=== PATIENT | female | born 1945 | race Caucasian/White ===

== ENCOUNTER 2017-05-31 08:00 | Outpatient (CLI) ==
--- NOTE | 2017-05-31 12:14 | MRI ---
EXAM: MRI right shoulder without contrast COMPARISON: Right shoulder radiographs 05/19/2017. HISTORY: Right shoulder pain. TECHNIQUE: Multiplanar noncontrast MR images of the right shoulder were acquired using a 1.2 Amy magnet. FINDINGS: There is marked supraspinatus as well as moderately severe infraspinatus and subscapulari s tendinosis. Tiny partial-thickness/rim rent tear of the insertional fibers of the supraspinatus m easuring 3 mm medial to lateral dimension and extending through the supraspinatus/infraspinatus junc tion. Thinning and bursal surface irregularity of the supraspinatus ovary region measuring 1.7 cm i n medial to lateral dimension from the acromion through the insertional fibers related bursal surfac e fraying and/or shallow partial-thickness bursal surface tear. No full-thickness rotator cuff tear or tendon retraction. Myotendinous unit strain of the supraspinatus. Cystic degenerative change a nd spurring of the greater tuberosity at the rotator cuff attachment. Moderate amount of fluid in t he subacromial/subdeltoid bursa with mild synovial thickening. Moderately severe thinning of the cartilage at the glenohumeral joint most pronounced along the cent ral/inferior glenoid with subchondral edema and cystic change. No evidence of an acute fracture or dislocation. There is a moderate sized glenohumeral joint effusion with synovial thickening/prolife ration most extensive at the level of the subscapularis recess. Correlate clinically for signs of a n inflammatory arthritis such as rheumatoid arthritis versus infection. Question small loose bodies or rice bodies within the joint at that level. No evidence of an acute fracture or dislocation. L imited assessment of the glenoid labrum on this non arthrographic study. Intrasubstance degeneratio n of the labrum with overall diminished size and mild peripheral irregularity posteriorly related to degenerative fraying/degenerative type tear. Hyperintense signal involving the capsulolabral junct ion anteriorly and inferiorly which may represent sequela of adhesive capsulitis or capsulolabral in jury. The long head of the biceps is located within the bicipital groove with tendinosis/partial tear and tenosynovitis. Marked hypertrophic degenerative changes of the acromioclavicular joint. Small acromioclavicular clifford int effusion with edema adjacent the joint capsule related to a low grade sprain synovitis without a bnormal widening of the joint space. Mild diffuse muscle atrophy. No soft tissue mass. IMPRESSION: 1. Moderate sized glenohumeral joint effusion with synovitis/synovial proliferation most pronounced at the subscapularis recess. This is nonspecific but clinical correlation for signs of inflammator y arthritis such as rheumatoid arthritis versus infection is recommended. Consider joint aspiration . Small filling defects within the subscapularis recess related to synovitis versus small loose bod ies or rice bodies. 2. Moderate subacromial/subdeltoid bursitis. 3. Moderate to marked rotator cuff tendinosis. Tiny partial-thickness/rim rent tear of the suprasp inatus and addition to a broad region of bursal surface fraying/partial thickness bursal surface tea r. No full-thickness rotator cuff tear or tendon retraction. 4. Marked hypertrophic degenerative changes of the acromioclavicular joint with a joint effusion. Edema adjacent joint capsule related synovitis or a low grade sprain without abnormal widening of th e joint space. 5. Tendinosis/partial tear and tenosynovitis of the long head bicep. 6. Suspected degenerative fraying/degenerative type tear of the glenoid labrum. Hyperintense signa l involving the anteroinferior capsulolabral junction related to capsulolabral sprain/injury or caps ulitis.
== END 2017-05-31 08:01 | disposition home or self-care (01) ==
LOC: RAD 08:00
PROVIDERS: ATTEND Emergency Medicine
DX: M67.911 Unspecified disorder of synovium and tendon, right shoulder (principal)

== ENCOUNTER 2017-06-20 08:55 | Outpatient (CLI) ==
--- NOTE | 2017-06-21 10:16 | MAMMO ---
EXAM: Digital screening mammogram with 3-D tomosynthesis and CAD HISTORY: Screening mammogram COMPARISON: Mammogram 05/13/2016 FINDINGS: Bilateral CC and MLO views of the breasts were performed digitally and demonstrate scatter ed fibroglandular breast density. The right breast oil cysts are present. There is unchanged left la teral well-demarcated nodules. There is no abnormal nodule or calcification. Benign vascular calcif ications are present. There is no significant interval change. IMPRESSION: No abnormal nodule or calcification RECOMMENDATION: Annual screening mammogram BIRADS category II: Benign findings
== END 2017-06-20 08:56 | disposition home or self-care (01) ==
LOC: RAD 08:55
PROVIDERS: ATTEND Emergency Medicine
DX: Z12.31 Encounter for screening mammogram for malignant neoplasm of breast (principal)
CPT/HCPCS: 77067

== ENCOUNTER 2017-12-07 18:06 | Outpatient (CLI) | END 2017-12-07 18:07 | disposition short-term general hospital (02) | LOC: AMBL 18:06 | PROVIDERS: ATTEND Emergency Medicine | DX: R06.9 Unspecified abnormalities of breathing (principal); R68.89 Other general symptoms and signs; Z98.890 Other specified postprocedural states ==

== ENCOUNTER 2017-12-19 15:34 | Outpatient (CLI) | END 2017-12-19 15:35 | disposition home or self-care (01) | LOC: RHC-LAB 15:34 | PROVIDERS: ATTEND Emergency Medicine | DX: D50.8 Other iron deficiency anemias (principal) | CPT/HCPCS: 36415; 85025 ==

== ENCOUNTER 2018-01-29 09:15 | Outpatient (CLI) | END 2018-01-29 09:16 | disposition home or self-care (01) | LOC: LAB 09:15 | PROVIDERS: ATTEND Emergency Medicine | DX: D50.8 Other iron deficiency anemias (principal) | CPT/HCPCS: 36415; 82607; 82728; 82746; 83540; 83550; 84466; 85025; 85045 ==

== ENCOUNTER 2018-03-21 13:53 | Outpatient (POV) | END 2018-03-21 17:00 | LOC: OUTPT 13:53 | PROVIDERS: ATTEND Otolaryngology | DX: H90.5 Unspecified sensorineural hearing loss (principal) ==

== ENCOUNTER 2018-06-19 10:29 | Outpatient (CLI) ==
--- NOTE | 2018-06-20 08:49 | MAMMO ---
EXAM: Bilateral digital screening mammogram (2-D and 3-D) History: Screening Comparison: Bilateral mammogram 06/20/2017 Findings: MLO and CC views of bilateral breasts demonstrate scattered fibroglandular breast parenchy ma. CAD was reviewed by the radiologist. Tomosynthesis was performed. Stable benign bilateral vasc ular and scattered calcifications. There are no dominant masses, no suspicious microcalcifications a nd no architectural distortions Impression: Benign stable mammogram. Recommend followup routine screening mammography in 1 year. BIRADS 2
== END 2018-06-19 10:30 | disposition home or self-care (01) ==
LOC: RAD 10:29
PROVIDERS: ATTEND Nurse Practitioner Family
DX: Z12.31 Encounter for screening mammogram for malignant neoplasm of breast (principal)
CPT/HCPCS: 77067

== ENCOUNTER 2018-07-13 15:58 | Outpatient (CLI) | END 2018-07-13 15:59 | disposition home or self-care (01) | LOC: FCC-LAB 15:58 | PROVIDERS: ATTEND Nurse Practitioner Family | DX: N39.0 Urinary tract infection, site not specified (principal); Z86.2 Personal history of diseases of the blood and blood-forming organs and certain disorders involving the immune mechanism; Z82.49 Family history of ischemic heart disease and other diseases of the circulatory system | CPT/HCPCS: 36415; 80053; 85025; 87086; 87186 ==

== ENCOUNTER 2018-12-13 14:47 | Outpatient (CLI) | END 2018-12-13 14:48 | disposition home or self-care (01) | LOC: RHC-LAB 14:47 | PROVIDERS: ATTEND Nurse Practitioner Family | DX: N39.0 Urinary tract infection, site not specified (principal) | CPT/HCPCS: 87086; 87186 ==

== ENCOUNTER 2019-02-13 08:25 | Outpatient (CLI) | END 2019-02-13 08:26 | disposition home or self-care (01) | LOC: RHC-LAB 08:25 | PROVIDERS: ATTEND General Practice | DX: R21 Rash and other nonspecific skin eruption (principal); I10 Essential (primary) hypertension | CPT/HCPCS: 36415; 80053; 80061; 84443; 85025 ==

== ENCOUNTER 2019-02-14 10:18 | Outpatient (CLI) ==
--- NOTE | 2019-02-14 11:22 | US ---
EXAM: Bilateral carotid artery Doppler History: Right carotid bruit. Technique: Multiple sonographic images through the bilateral internal carotid arteries were obtained . Color duplex Doppler was used to interrogate vascular flow. Findings: The right ICA peak systolic velocity is within normal limits measuring 85 cm/sec. The right ICA/cca PSV ratio is normal at 1.5. The right vertebral artery is patent and demonstrates antegrade flow. G ray scale images demonstrate mild plaque buildup within the right internal carotid artery. The left ICA peak systolic velocity is moderately elevated measuring 127 cm/sec. The left ICA/cca PS V ratio is moderately increased at 2.0. The left vertebral artery is patent and demonstrates antegra de flow. Solomon scale images demonstrate mild to moderate plaque buildup within the left internal leonardo tid artery. Impression: 1. Moderate 50-69% hemodynamic stenosis of the left internal carotid artery. 2. No significant hemodynamic stenosis of the right internal carotid artery.
== END 2019-02-14 10:19 | disposition home or self-care (01) ==
LOC: RAD 10:18
PROVIDERS: ATTEND General Practice
DX: R09.89 Other specified symptoms and signs involving the circulatory and respiratory systems (principal)

== ENCOUNTER 2019-05-21 11:50 | Outpatient (CLI) ==
[2019-05-22 13:06] VITALS: BMI 32.4
== END 2019-05-21 11:51 | disposition home or self-care (01) ==
LOC: RHC-LAB 11:50
PROVIDERS: ATTEND Nurse Practitioner Family
DX: R73.9 Hyperglycemia, unspecified (principal); M79.672 Pain in left foot; R31.9 Hematuria, unspecified
CPT/HCPCS: 81001; 87086; 87186

== ENCOUNTER 2019-05-22 09:18 | Observation (INO) ==
[2019-05-22] MEDS ORDERED: DECADRON 4 MG/ML SDV IM STA (09:40)
--- NOTE | 2019-05-22 10:53 | DI ---
Exam: Two views of the neck soft tissues. Comparison: None available. Reason for exam: Angioedema. FINDINGS: There is multilevel degenerative disease seen throughout the cervical spine. No obvious v ertebral body height loss is seen. Imaging is obtained from the C2-C6 vertebral body. The preverteb ral soft tissues appear mildly prominent measuring 2 cm at the C6 vertebral body. Impression: Mild prominence of the prevertebral soft tissues, specifically at the level of the C6 vertebral body which measures approximately 2 cm. If clinical concern exists for soft tissue pathology, direct visu alization could be performed. Recommend clinical correlation.
[2019-05-22] MEDS ORDERED: ROCEPHIN 1 GM/50 ML D5W 1 GM in PREMIX 50 ML D5W 1 BAG IV STA (11:06)
--- NOTE | 2019-05-22 11:10 | ED.PDOC ---
General ED Provider: Dr. TYRESE LOPEZ Chief Complaint: Allergic Reaction Stated Complaint: FEELS THROAT IS CLOSING AFTER MEDS FOR UTI. ABLE TO DRINK WATER FULL CUP AT E/D Time Seen by Physician: 09:30 (SEEN WITH HER NURSE ) Mode of Arrival: Walk-In Information Source: Patient Exam Limitations: No limitations [facility] Nursing and Triage Documentation Reviewed and Agree: Yes Does patient meet sepsis criteria?: No System Inflammatory Response Syndrome: Not Applicable Sepsis Protocol: For patient's 13 years and over: Temp is 96.8 and below OR 101 and greater Pulse >90 BPM Resp >20/minute Acutely Altered Mental Status Are patient's symptoms suggestive of a new infection, such as: -Pneumonia -Skin, Soft Tissue -Endocarditis -UTI -Bone, Joint Infection -Implantable Device -Acute Abdominal Infection -Wound Infection -Meningitis -Blood Stream Catheter Infection -Unknown EENT Complaint Exam - Throat Complaint/Exam Onset/Duration: TODAY Symptoms Are: Still present Initial Severity: Mild Current Severity: Mild Aggravating: Reports: None Alleviating: Reports: None Associated Signs and Symptoms: Denies: Fever, Dysphagia, Drooling, Foreign body sensation, Chills, Cough, Wheezing, Hoarseness, Sinus discomfort, Nasal congestion, Difficulty breathing, Lethargy, Irritability, Decreased activity, Vomiting, Diarrhea, Decreased hearing, Ear drainage Uvula Midline: Yes Yamilex-tonsillar Fluctuence: No Scarlatinaform Rash Present: No Lesions: Absent: Lip, Gums, Tongue, Buccal Mucosa, Pharynx Exanthem: Absent: Lip, Gums, Tongue, Buccal Mucosa, Pharynx Vesicles: Absent: Lip, Gums, Tongue, Buccal Mucosa, Pharynx Stridor Present: No Sinus Tenderness Present: No Tonsillar Hypertrophy Present: No Tonsillar Exudate Present: No Yamilex-tonsillar Swelling Present: No Adenopathy Present: No Splenomegaly Present: No Differential Diagnoses: Other (ANGIOEDEMA) Review of Systems - Review Of Systems Constitutional: Reports: No symptoms Eyes: Reports: No symptoms Ears, Nose, Mouth, Throat: Reports: Throat pain Respiratory: Reports: No symptoms Cardiac: Reports: No symptoms GI: Reports: No symptoms : Reports: No symptoms Musculoskeletal: Reports: No symptoms Skin: Reports: No symptoms Neurological: Reports: No symptoms Endocrine: Reports: No symptoms Hematologic/Lymphatic: Reports: No symptoms All Other Systems: Reviewed and Negative Past Medical History - Past Medical History Previously Healthy: Yes Endocrine: Reports: None Cardiovascular: Reports: None Respiratory: Reports: None Hematological: Reports: None Gastrointestinal: Reports: None Genitourinary: Reports: None Neuro/Psych: Reports: None Musculoskeletal: Reports: None Cancer: Reports: None Last Menstrual Period: n/a - Surgical History General Surgical History: Reports: None - Family History Family History: Reports: None - Social History Smoking Status: Never smoker Hx Substance Use: No Alcohol Screening: None - Immunizations Tetanus Shot up to Date: No Physical Exam - Physical Exam Appearance: Well-appearing, No pain distress, Well-nourished Eyes: CHRIST, EOMI, Conjunctiva clear ENT: Ears normal, Nose normal, Oropharynx normal Respiratory: Airway patent, Breath sounds clear, Breath sounds equal, Respirations nonlabored Cardiovascular: RRR, Pulses normal, No rub, No murmur GI/: Soft, Nontender, No masses, Bowel sounds normal, No Organomegaly Musculoskeletal: Normal strength, ROM intact, No edema, No calf tenderness Skin: Warm, Dry, Normal color Neurological: Sensation intact, Motor intact, Reflexes intact, Cranial nerves intact, Alert, Oriented Psychiatric: Affect appropriate, Mood appropriate Interpretation - Radiology Interpretation Radiology Interpretation By: Radiologist Radiology Results: Positive (POSSIBLE NECK MASS AT C6) Physician Notification - Case Discussed Physician Notified: PMD Time of Notification: 11:10 Admit To: Observation Critical Care Note - Critical Care Note Total Time (mins): 0 Course - Course Hematology/Chemistry: 05/22/19 09:49 05/22/19 09:49 Orders, Labs, Meds: Lab Review 05/22/19 05/22/19 05/22/19 09:49 09:49 09:55 WBC 10.72 H RBC 4.54 Hgb 14.1 Hct 42.6 MCV 93.8 MCH 31.1 H MCHC 33.1 RDW Coeff of Goran 12.5 Plt Count 219 Immature Gran % (Auto) 0.5 Neut % (Auto) 83.0 Lymph % (Auto) 9.8 L [place] % (Auto) 4.9 Eos % (Auto) 1.5 Baso % (Auto) 0.3 Immature Gran # (Auto) 0.1 Neut # (Auto) 8.9 H Lymph # (Auto) 1.1 [place] # (Auto) 0.5 Eos # (Auto) 0.2 Baso # (Auto) 0.0 Sodium 138.6 Potassium 3.55 Chloride 101.4 Carbon Dioxide 28.8 Anion Gap 11.95 BUN 13.1 Creatinine 0.77 Estimated GFR (MDRD) 74.00 BUN/Creatinine Ratio 17.01 Glucose 104.7 Calcium 9.15 Total Bilirubin 0.68 AST 22.3 ALT 19.8 Alkaline Phosphatase 91.8 Total Protein 7.18 Albumin 4.08 Globulin 3.10 Albumin/Globulin Ratio 1.31 Urine Color Yellow Urine Clarity Cloudy Urine pH 5.5 Ur Specific Traphill 1.025 Urine Protein Negative Urine Glucose (UA) Negative Urine Ketones Negative Urine Blood 2+ Urine Nitrite Negative Urine Bilirubin Negative Urine Urobilinogen 0.2 Ur Leukocyte Esterase 2+ Urine Microscopic RBC 5-10 Urine Microscopic WBC Tntc Ur Squamous Epith Cells Not present Urine Bacteria 2+ Orders Category Date Time Status ADMIT OBSERVATION [PLACE PATIENT OBSERVATION] .TO ADMISSION 05/22/19 11:07 Ordered MEDSURG (NON-MONITORED BED) ACTIVITY .Complete BR CARE 05/22/19 11:06 Ordered INTAKE & OUTPUT Q8HR CARE 05/22/19 11:06 Ordered NPO REMINDER: IMAGING ONCE CARE 05/22/19 11:04 Active VITAL SIGNS Q4HR CARE 05/22/19 11:06 Ordered REGULAR DIET DIETARY 05/22/19 Lunch Ordered CBC W/ AUTO DIFF DAILY@0600 LAB 05/23/19 06:00 Ordered CBC W/ AUTO DIFF DAILY@0600 LAB 05/24/19 06:00 Ordered CBC W/ AUTO DIFF Stat LAB 05/22/19 09:49 Completed COMPREHENSIVE METABOLIC PANEL DAILY@0600 LAB 05/23/19 06:00 Ordered COMPREHENSIVE METABOLIC PANEL DAILY@0600 LAB 05/24/19 06:00 Ordered COMPREHENSIVE METABOLIC PANEL Stat LAB 05/22/19 09:49 Completed URINALYSIS C & S IF INDICATED Stat LAB 05/22/19 09:55 Completed URINE CULTURE Stat LAB 05/22/19 09:55 Received Ceftriaxone/D5w 1 gm Premix [Rocephin 1 gm Premix] 1 gm MEDS 05/22/19 11:06 Ordered Premix 50 ml D5w 1 bag IV ONCE Dexamethasone 4 mg/ml Inj [Decadron 4 mg/ml Sdv] MEDS 05/22/19 09:40 Discontinued 8 mg IM ONCE STA Sodium Chloride 0.9% [Sodium Chloride] 1,000 ml MEDS 05/22/19 11:30 Ordered IV 75 mls/hr CT SOFT TISSUE NECK W/WO CONT Stat RADS 05/22/19 11:04 Ordered NECK, SOFT TISSUE Stat RADS 05/22/19 09:40 Completed ULTRASOUND THYROID [U/S THYROID] Routine RADS 05/22/19 11:02 Ordered Medications Generic Name Dose Route Start Last Admin Trade Name Freq PRN Reason Stop Dose Admin Sodium Chloride 1,000 mls @ 75 mls/hr 05/22/19 11:30 Sodium Chloride IV .[id number] ROMA Discontinued Medications Generic Name Dose Route Start Last Admin Trade Name Freq PRN Reason Stop Dose Admin Dexamethasone Sodium Phosphate 8 mg 05/22/19 09:40 05/22/19 09:53 Decadron 4 Mg/Ml Sdv IM 05/22/19 09:41 8 mg ONCE STA Administration Vital Signs: Temp Pulse Resp BP Pulse Ox 05/22/19 09:18 98.1 F 80 16 169/82 H 96 Departure - Departure Time of Disposition: 11:10 Disposition: PLACED OBSERVATION Discharge Problem: UTI (urinary tract infection), uncomplicated, Neck mass, Allergic state Condition: Pt referred to PMD for follow-up: Yes (ADMITT) IPMP verified?: No Allergies/Adverse Reactions: Allergies Sulfa (Sulfonamide Antibiotics) Allergy (Severe, Unverified 05/22/19 09:36) difficulty breathing nitrofurantoin [From Macrodantin] Adverse Reaction (Verified 05/22/19 09:36) Pcn Allergy (Severe, Uncoded 05/22/19 09:36) rash pt to notify drugstore Home Medications: Ambulatory Orders 1 [No Reported Medications] 05/22/19 Disposition Discussed With: Patient
[2019-05-22] MEDS ORDERED: ROCEPHIN 1 GM/50 ML D5W 50 ML IV ONE (11:35)
[2019-05-22] MEDS: SODIUM CHLORIDE 1,000 ML IV SCH (11:52)
--- NOTE | 2019-05-22 12:09 | CT ---
Exam: CT soft tissue neck with and without intravenous contrast. Comparison: X-ray performed on the same day. Reason for exam: Neck mass at C6. FINDINGS: Diffuse heterogenicity of the thyroid with multiple hypodensities. No displaced facial fractures are seen. No acute fracture or listhesis in the cervical spine. No inflammatory changes in the retro conal space. No contrast enhancing mass lesions are seen within the oropharynx. No pneumothorax in the partially imaged lung apices. The parotid and submandibular glands appear grossly unremarkable. Mildly prompt appearing lymph nodes are seen in the cervical and paracervical chain soft tissues mónica uring up to 8 mm that do not meet radiographic size criteria for enlargement. No discrete air fluid levels in the paranasal sinuses. Impression: No acute imaging findings are seen within the neck soft tissues. No contrast enhancing mass lesion is seen in the level of C6. Heterogeneous appearing thyroid with multiple hypodensities. Outpatient ultrasound of the thyroid is recommended for further characterization.
[2019-05-22 13:06] VITALS: BMI 32.4
--- NOTE | 2019-05-22 13:23 | US ---
EXAM: Thyroid ultrasound History: Neck mass. Comparison: CT soft tissue neck 05/22/2019 Technique: Multiple sonographic images through the soft tissue neck and thyroid were obtained. [place] r duplex Doppler was used to interrogate vascular flow. Findings: The right lobe of the thyroid measures 4.6 cm x 2.0 cm x 1.7 cm and demonstrates heterogeneous echote xture with multiple nodules and the largest measuring 2.2 cm. The thyroid isthmus measures 0.3 cm in thickness. The left lobe of the thyroid measures 4.7 cm x 1.7 cm x 1.5 cm and demonstrates multiple nodules and heterogeneous echotexture. The largest nodule measures 1.5 cm. No extrathyroidal masses are identified. Thyroid gland is mildly hypervascular. Impression: 1. Multinodular thyroid gland. 2. Heterogeneous and mildly hypervascular thyroid gland. Correlate with thyroid function tests for possible thyroiditis.
[2019-05-22] MEDS ORDERED: DECADRON 4 MG/ML SDV IVP STA (17:02)
[2019-05-22] MEDS ORDERED: DECADRON 4 MG/ML SDV ONE (17:13)
[2019-05-23] MEDS: SODIUM CHLORIDE 1,000 ML IV SCH ×2 (03:01→13:57)
[2019-05-23] MEDS ORDERED: ROCEPHIN 1 GM VIAL 1 GM in SODIUM CHLORIDE 50 ML IV SCH (10:30)
[2019-05-23] MEDS ORDERED: ROCEPHIN IV SCH (10:30)
[2019-05-23] MEDS ORDERED: SODIUM CHLORIDE IV SCH (10:30)
[2019-05-23] MEDS: ROCEPHIN 2 GM/50 ML D5W 2 GM in PREMIX 50 ML D5W 1 BAG IV SCH (11:04)
--- NOTE | 2019-05-23 14:19 | HP ---
DATE OF SERVICE: 05/22/19 CHIEF COMPLAINT: "Feels like throat is closing after medications per antibiotic". She is able to drink water however she feels like her face is swelling up. HISTORY OF PRESENT ILLNESS: Ms. Rodríguez is a pleasant 73-year-old patient of Dr. Mcpherson who presented to the Emergency Department after experiencing throat swelling after starting an antibiotic prescription for urinary tract infection. She was seen on 05/21/19 for complaints of burning it urination. She reports that she was started on Macrobid prescription per Missy Jadenumble. I did review Missy Gan's office visit note and she reported that the symptoms of burning with urination did start the week prior. She was given Macrobid prescription. Urinalysis was reviewed and it did show at that time moderate amount of blood and some nitrates and a large amount of leukocytes at that office visit on 05/21/19. She did present to the Emergency Department on 05/22/19. Dr. Peter did see the patient. She did complain of feeling like her throat was swelling. She also did complain to me that her upper lip felt like it was swelling and turning red and she felt like her throat was swelling. She also felt sensation of shortness of breath. While in the Emergency Department labs were checked as well as radiological testing. A CT of the soft tissue of the neck was done. It did show no acute imaging findings seen in the neck soft tissues. There was concern for a heterogenous appearing thyroid with multiple hypodensities. A thyroid ultrasound was completed and did show heterogenous and mildly hypervascular thyroid gland to correlate with thyroid function test for possible thyroiditis. Two views of the neck soft tissues was also completed and did show mild prominence in the prevertebral soft tissues specifically at the level of the C6 vertebral body which measures approximately 2 cm. If clinical concern exists for soft tissue pathology, direct visualization could be performed. The patient was ordered a urinalysis and urine culture in the Emergency Department, was given Ceftriaxone and also Dexamethasone intramuscular 8 mg. The patient was placed in observation and admitted to Dr. Mcpherson for further evaluation and treatment. PAST MEDICAL HISTORY: Bad ear infections History of bilateral ankle swelling Osteoarthritis PAST SURGICAL HISTORY: Bilateral hip replacement Left knee replacement C-sections Tubal ligation FAMILY HISTORY: Cardiac disorders due to smoke related and family history of leukemia. SOCIAL HISTORY: Denies any alcohol, substance abuse or tobacco use. MEDICATIONS: (CURRENT HOME) No reported home medications ALLERGIES: SULFA, MACROBID REVIEW OF SYSTEMS: CONSTITUTIONAL: No reports of any fevers, chills, nightsweats or weight changes. HEENT: Does report throat swelling that led to the admission and does complain of some upper lip swelling and allergic reaction to the antibiotic. No reports of headache, nasal drainage or sore throat. CARDIOVASCULAR: No reports of chest pain, irregular rhythm, orthopnea or peripheral edema. LUNGS: Does report some shortness of breath. No reports of any cough or congestion or any history of lung disease. GASTROINTESTINAL: No reports of abdominal pain, nausea, vomiting or diarrhea. : Does complain of a recent urinary tract infection with some frequency. No reports of any urinary incontinence. MUSCULOSKELETAL: No reports of unusual muscle pain. She does have a history of osteoarthritis and does have some bilateral ankle swelling that was chronic. Does have history of bilateral hip replacement and a left knee replacement. NEUROLOGIC: No reports of any dizziness, fatigue or neurological deficits. PSYCHIATRIC: No complaints of anxiety, depression or mood changes. ENDOCRINE: No reports of any diabetes mellitus or thyroid disease. INTEGUMENT: No reports of unusual rashes, lesions or skin changes. PHYSICAL EXAMINATION: GENERAL: She is alert, oriented. She is pleasant. She is in no acute distress at the time of exam. VITAL SIGNS: On admission vital signs were stable. Temperature 98.1, pulse rate 80, blood pressure 169/82, respiratory rate 16, 02 sat 96%. Height 5'7", weight 210 lbs. HEENT: Head is normocephalic, atraumatic. Pupils are equal. Tongue is not swollen. Throat is negative. No masses. Throat is not swollen. She does have some mild swelling to her upper lip on exam. NECK: Supple. There is no lymphadenopathy, no thyromegaly, no carotid bruits auscultated. CARDIOVASCULAR: S1, S2, regular rate and rhythm. No JVD. Does have some mild lower extremity swelling. She does have some joint swelling in the right ankle that is chronic. LUNGS: Clear. Breathing is stable. She is in no acute distress. ABDOMEN: Soft. Bowel sounds are positive. There is no tenderness or rebound tenderness or rigidity. NEUROLOGIC: Cranial nerves 2-12 grossly intact without any overt neurological deficit. SKIN: Warm and dry. No overt lesions, rashes or wounds. LABS AND DIAGNOSTIC TESTING: Have been reviewed. White count 10.72 on admission. Hemoglobin 14.1, hematocrit 42.6. Platelet count 219. Chem panel electrolytes within normal limits. Urinalysis showed 2+ hematuria, 2+ bacteria. ASSESSMENT: 1. Allergic reaction to Macrobid prescription with sensation of throat swelling and noted lip swelling. The patient was given Decadron intramuscular in the Emergency Department for treatment of the reaction. 2. Recent urinary tract infection. 3. Shortness of breath. 4. Leukocytosis. 5. Osteoarthritis. 6. History of bilateral hip replacement and left knee replacement. PLAN: 1. Admit the patient. 2. We will plan to repeat the Decadron intramuscularly this afternoon. 3. Continue to monitor the patient and continue IV fluids on this patient. 4. Monitor the patient overnight and plan discharge tomorrow if the patient continues to remain stable. 5. Further orders and recommendations per Dr. Mcpherson. TIME SPENT: GREATER THAN 65 MINUTES MTDD
[2019-05-24] MEDS: SODIUM CHLORIDE 1,000 ML IV SCH ×2 (02:04→10:11)
[2019-05-24] MEDS: ROCEPHIN 2 GM/50 ML D5W 2 GM in PREMIX 50 ML D5W 1 BAG IV SCH (08:58)
[2019-05-24 13:35] VITALS: BP 132/84; TEMP 98.7
--- NOTE | 2019-06-04 14:43 | DS ---
DATE OF SERVICE: 05/24/19 PATIENT IDENTIFICATION: 73 year old female who presented to the emergency room because swelling of the face and sensation of the throat swelling. No obvious respiratory distress after taking Macrobid prescribed for urinary tract infection. She had a CAT scan of the neck soft tissue and showing no swelling of the epiglottis. She was given 8mg of Decadron IM in the emergency room and intervenous fluids normal saline at 75cc an hour. The patient also has thyroid ultrasounds and was interpreted as multinodular thyroid gland heterogeneous and mild hypervascular thyroid gland. Correlate with thyroid function tests for possible thyroiditis. The patient on initial examination had redness on both medial maxillary sinus areas with no significant swelling. The swelling of the lips had resolved and no swelling of the tongue or buccal mucosa. NECK: has no wheezing audible and no bruit. LUNGS: Clear HEART: Normal sinus rhythm The intervenous fluids was continued and the patient was given another dose of Decadron 4mg. These medications were given intervenously although the nurse was directed to give it intermuscularly. Labs on the following day 05/23/19 showed a normal CBC, essentially normal CMP except for slightly elevated blood sugar 153.8, procalcitonin was normal 0.05. TSH 0.565, Free T4 1.9, normal. Total thyroid T4 6.3, T3 uptake 30, Thyroid peroxidase antibody normal at 24. VITALS: Temperature 98.7, pulse 71, blood pressure 132/84, respiratory rate 20, oxygen saturation 98 at room air. The patient denied any shortness of breath or wheezing or difficulty breathing. The swelling in the face has resolved. There is no rash or pruritus anywhere in her body. A repeat CBC shows normal CBC and normal CMP. Urinalysis done showed 2+ blood, leukocyte esterase Trace, RBC 0-2, WBC 0-2. It was previously too numerous to count. The patient was given Ceftriaxone while in the hospital beginning 1 gram and increased to 2 grams daily. Urine culture was mixed growth less than 30,000 colony per ml. LUNGS: Clear to auscultation HEART: Audible and regular with good tones. ABDOMEN: Unremarkable. LOWER EXTREMITIES: No tenderness in the calf muscles. No further medication was given to this patient. The patient is to see me in about a week at the office or before if there is any concerns. FINAL DIAGNOSES: 1. Allergic reaction to Macrobid, mild to slightly moderate consisting of redness and swelling of the face and upper lip, somewhat resolved 2. Elevated BMI 32.4 3. History of urinary tract infection, resolved. TIME SPENT: GREATER THAN 30 MINUTES MTDD
--- NOTE | 2019-06-11 15:29 | PN ---
DATE OF SERVICE: 05/23/19 SUBJECTIVE: She is resting in her bed. She denies any complaints or shortness of breath. She denies any complaints of throat swelling. She does report that her lip feels back to normal. She does not have any obvious swelling noted. We did discuss her thyroid ultrasound results which showed multinodular thyroid gland, heterogeneous and mild hypervascular thyroid gland with recommendations to correlate with thyroid function test for possible thyroiditis. We are going to order a TSH and a TPO today. LUNGS: Clear, no wheezing in her lung pedroza today ABDOMEN: Soft, no flank pain. HEART: Regular rate and rhythm She is feeling well. Her white count has returned to normal range at 8.10. She remains on Ceftriaxone or urinary tract infection and she seems to be tolerating this without any problems. She also remains on IV fluid at 75 ml/ hr. Today her vital signs are stable - temperature 98, pulse 61, blood pressure 142/ 81, respiratory rate 20 and O2 sat 98% on room air. PLAN: Continue current treatment plan and will follow up tomorrow and possible discharge home tomorrow. ANTELMO
== END 2019-05-24 15:39 | disposition home or self-care (01) ==
LOC: ED 09:18 → UNDOADMOB 11:22 → MEDSURG B 11:22
PROVIDERS: ADMIT General Practice; ATTEND General Practice
DX: R06.02 Shortness of breath; Z68.32 Body mass index [BMI] 32.0-32.9, adult; D72.829 Elevated white blood cell count, unspecified; R22.0 Localized swelling, mass and lump, head; N39.0 Urinary tract infection, site not specified; M19.90 Unspecified osteoarthritis, unspecified site